=== PATIENT | female | born 1990 | race Two or more races ===

== ENCOUNTER 2024-09-08 11:06 | Emergency (ER) | payer MEDICAID, OTHER ==
[~2024-09-08] VITALS: Ht 160 cm; Wt 52.3 kg
[~2024-09-08 11:06] MED LIST: HYDR-3706 PO; NAPR-1025 PO
[2024-09-08 11:09] VITALS: TEMP 98
[2024-09-08 14:28] LABS: TROPONIN I-HIGH SENSITIVITY Less Than 4 ng/L (<51)
[2024-09-08] MEDS: PB/HYOSCY/ATR/SCOP/LIDO/MAALOX 55 ML BOTTLE PO ONE (15:05)
[2024-09-08 15:50] LABS: BASOPHILS % (AUTO) 0.7 % (0.0-2.0); EOSINOPHILS % (AUTO) 0.9 % (1.0-6.0); HEMATOCRIT 40.1 % (36-46); HEMOGLOBIN 13.4 g/dL (12.0-16.0); LYMPHOCYTES # (AUTO) 3.4 K/uL (1.0-4.8); LYMPHOCYTES % (AUTO) 58.3 % (22.0-44.0); MEAN CORPUSCULAR HGB CONC 33.3 G/dL (31.0-37.0); MEAN CORPUSCULAR VOLUME 93 fL (80-100); MONOCYTES # (AUTO) 0.6 K/uL (0.1-1.0); MONOCYTES % (AUTO) 10.3 % (2.0-9.0); NEUTROPHILS # (AUTO) 1.7 K/uL (1.8-7.7); NEUTROPHILS % (AUTO) 29.8 % (40.0-70.0); PLATELET COUNT (AUTO) 161 K/uL (150-450); RED BLOOD CELL COUNT(AUTO) 4.31 MIL/uL (4.00-5.20); RED CELL DISTRIBUTION WIDTH 12.9 % (11.5-14.5); WHITE BLOOD COUNT (AUTO) 5.8 K/uL (4.5-11.0)
[2024-09-08 15:58] LABS: ANION GAP 11 mmol/L (8-16); CALCIUM, TOTAL 9.1 mg/dL (8.8-10.5); CARBON DIOXIDE 25 mmol/L (22-29); CHLORIDE 100 mmol/L (98-107); CREATININE 0.77 mg/dL (0.60-1.30); GLOMERULAR FILTR. RATE CALC > 60 mL/min (>60); GLUCOSE,RANDOM 85 mg/dL (70-110); POTASSIUM 3.7 mmol/L (3.5-5.1); SODIUM SERUM 136 mmol/L (136-145); UREA NITROGEN, BLOOD 10 mg/dL (7-18)
[2024-09-08 16:02] LABS: ALANINE AMINOTRANSFERASE 14 U/L (12-78); ALBUMIN 3.9 g/dL (3.4-5.0); ALKALINE PHOSPHATASE 50 U/L (46-116); ASPARTATE AMINOTRANSFERASE 17 U/L (15-37); BILIRUBIN,TOTAL 0.4 mg/dL (0.1-1.0); LIPASE 35 U/L (16-77); TOTAL PROTEIN, SERUM 7.7 g/dL (6.4-8.2)
[2024-09-08] MEDS: KETOROLAC TROMETHAMINE 60 MG/2 ML VIAL IM ONE (16:03)
[2024-09-08] MEDS: ACETAMINOPHEN/CODEINE 300-30 MG TABLET PO ONE (16:03)
[2024-09-08] MEDS ORDERED: LORA-1000 PO (16:46)
[2024-09-08] MEDS ORDERED: ALBU18HF12 IH (16:46)
[2024-09-08] MEDS ORDERED: OMEP20 PO (16:46)
[2024-09-08] MEDS ORDERED: SUCR1TAB2 PO (16:46)
[2024-09-08] MEDS ORDERED: POLY119P3 PO (16:46)
[2024-09-08 17:00] VITALS: BP 108/58; PULSE 63; RESP 22; O2SAT 99
== END 2024-09-08 17:38 | disposition home or self-care (01) ==
LOC: EMS 11:06
DX: K21.9 Gastro-esophageal reflux disease without esophagitis (principal); F41.9 Anxiety disorder, unspecified; G47.00 Insomnia, unspecified; K59.00 Constipation, unspecified; R07.89 Other chest pain; Z88.0 Allergy status to penicillin; Z79.899 Other long term (current) drug therapy
CPT/HCPCS: 99285; 76705; 71045; 80048; 80076; 83690; 84484; 84703; 85025; 36415; 93005; 96372; J1885